=== PATIENT | female | born 1945 | race Caucasian/White ===

== ENCOUNTER → 2017-01-02 | Outpatient (CLI) | payer MEDICARE, OTHER ==
[~2017-01-02] MED LIST: AVANDIA; CARDIZEM CD; CRESTOR; GLUCOPHAGE XR500 MG; INDERAL LA; KCL; LASIX; LISINOPRIL; LORTAB 10/500 T1 TAB; NEURONTIN; NEXIUM; SERZONE; VESICARE
--- NOTE | ~2017-01-02 | PFT ---
[id number] [facility] [address] [facility]. [place], [place] [address] [id number] O MR#: [id number] NAME: PAULA PRIEST ROOM: SEX: F STUDY DATE/TIME: 01/03/2017 : 1945 AGE: 71 STUDY DESCRIPTION: Attending Physician: Thang Mckeon M.D. Referring Physician: Thang Mckeon M.D. Primary Care Physician: Power Conklin PULMONARY DIAGNOSTIC REPORT EXAM Pulmonary Function Test. Spirometry is suggestive of a mild restrictive defect. There is a borderline response to bronchodilators. Flow volume loop is fairly unremarkable. Lung volumes reveal no evidence of a restrictive defect. Diffusion capacity is moderately reduced. Isolated reduced diffusion capacity can be seen in early interstitial lung disease, pulmonary vascular disease, anemia, emphysema, etc., and clinical correlation is needed. Dictated by... Pema Strickland/coy TD: 01/03/2017 17:42 JOB #: [id number] PULMONARY DIAGNOSTIC REPORT Page 1 of 1
== END | disposition home or self-care (01) ==
LOC: CRC 12-27 08:00
DX: R06.00 Dyspnea, unspecified (principal); R06.2 Wheezing; R05 Cough
CPT/HCPCS: 94060; 94726; 94729